=== PATIENT | female | born 1945 | race Caucasian/White ===

== ENCOUNTER 2022-06-10 09:22 | Emergency (ER) | payer MEDICARE ==
[~2022-06-10] VITALS: Ht 154.9 cm; Wt 76.7 kg
[2022-06-10] MEDS ORDERED: ONDANSETRON ODT4 MG PO (10:13)
== END 2022-06-10 10:23 | disposition home or self-care (01) ==
LOC: ER 09:34
DX: J10.1 Influenza due to other identified influenza virus with other respiratory manifestations (principal); Z88.0 Allergy status to penicillin; R19.7 Diarrhea, unspecified; I10 Essential (primary) hypertension; Z20.822 Contact with and (suspected) exposure to COVID-19
CPT/HCPCS: 87400; 93005; 99283; U0002